=== PATIENT | male | born 1945 | race Caucasian/White ===

== ENCOUNTER 2023-08-09 19:49 | Emergency (ER) | payer MEDICARE, OTHER ==
[~2023-08-09] VITALS: Ht 170.2 cm; Wt 65.8 kg
[2023-08-09 20:22] VITALS: TEMP 98.1
[2023-08-09] MEDS ORDERED: LIDOCAINE 1% INJ 50 ML MDV IJ ONE (21:19)
[2023-08-09] MEDS: LIDOCAINE 1% INJ 50 ML MDV IJ ONE (21:50)
[2023-08-09 22:12] VITALS: BP 135/78; O2SAT 98
== END 2023-08-09 22:00 | disposition home or self-care (01) ==
LOC: ER 20:01
DX: S61.210A Laceration without foreign body of right index finger without damage to nail, initial encounter (principal); E11.9 Type 2 diabetes mellitus without complications; Z86.79 Personal history of other diseases of the circulatory system; X58.XXXA Exposure to other specified factors, initial encounter; Y93.89 Activity, other specified; Y92.098 Other place in other non-institutional residence as the place of occurrence of the external cause; Y99.8 Other external cause status
CPT/HCPCS: 12001; 99282; J3490

== ENCOUNTER 2023-08-12 14:06 | Emergency (ER) | payer MEDICARE, OTHER ==
[~2023-08-12] VITALS: Ht 170.2 cm; Wt 65.8 kg
[2023-08-12] MEDS ORDERED: TDAP [DIPH/PERTUSSIS/TET] 0.5 ML VIAL IM ONE (15:51)
[2023-08-12] MEDS: TDAP [DIPH/PERTUSSIS/TET] 0.5 ML VIAL IM ONE (15:58)
[2023-08-12 16:11] VITALS: BP 130/78; TEMP 98.2; O2SAT 97
== END 2023-08-12 16:11 | disposition home or self-care (01) ==
LOC: ER 14:14
DX: S61.210D Laceration without foreign body of right index finger without damage to nail, subsequent encounter (principal); Z48.00 Encounter for change or removal of nonsurgical wound dressing; E11.9 Type 2 diabetes mellitus without complications; W45.8XXD Other foreign body or object entering through skin, subsequent encounter
CPT/HCPCS: 90715